=== PATIENT | male | born 1970 | race Caucasian/White ===

== ENCOUNTER → 2024-10-27 | Emergency (ER) | payer OTHER ==
[~2024-10-27] VITALS: Ht 180.3 cm; Wt 83.9 kg
[~2024-10-27] MED LIST: MAG/ALUM/SIMETH 30 ML UDCUP PO ONE
[2024-10-27 12:59] LABS: BASOPHILS # (AUTO) 0.02 K/uL (0.00-0.20); BASOPHILS % (AUTO) 0.2 % (0.0-5.0); EOSINOPHILS # (AUTO) 0.07 K/uL (0.00-0.70); EOSINOPHILS % (AUTO) 0.6 % (0.0-8.0); HEMATOCRIT 44.9 % (42-54); IMMATURE GRANULOCYTE ABSOLUTE 0.05 K/uL (0-1); LYMPHOCYTES # (AUTO) 0.9 K/uL (1.0-4.8); MEAN CORPUSCULAR HEMOGLOBIN 32.2 pg (27.0-33.0); MEAN CORPUSCULAR HGB CONC 34.3 g/dL (32.0-36.0); MEAN CORPUSCULAR VOLUME 93.9 fL (79-99); MONOCYTES # (AUTO) 0.8 K/uL (0.1-1.0); MONOCYTES % (AUTO) 6.7 % (3.0-13.0); NEUTROPHILS # (AUTO) 9.5 K/uL (1.8-7.7); NEUTROPHILS % (AUTO) 84.1 % (40.0-77.0); PLATELET COUNT (AUTO) 214 K/uL (130-400); RED BLOOD CELL COUNT(AUTO) 4.78 MIL/uL (4.50-6.20); RED CELL DISTRIBUTION WIDTH 12.7 % (11.0-15.5); WHITE BLOOD COUNT (AUTO) 11.3 K/uL (4.8-10.8)
[2024-10-27 13:06] LABS: CREATININE 0.9 mg/dL (0.5-1.3); POTASSIUM 4.3 mmol/L (3.5-5.1)
--- NOTE | 2024-10-27 13:31 | EKG ---
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
--- NOTE | 2024-10-27 14:14 | ERN ---
ED Note History of Present Illness Stated Complaint: CHEST PAIN Chief Complaint: Chest Pain Time Seen by MD: 12:40 Dictation: 54-year-old male presents to the ED for evaluation of chest pain onset 6:00 a.m. this morning. Patient reports pain radiates to his back in his also complaining of right flank pain, but denies any shortness a breath, vomiting or any other associated symptoms at this time. Patient also mentioned he had been [place] surfing for the last couple of days and believes he might have a muscle strain. Allergies: Coded Allergies: amoxicillin (Unverified Allergy, Unknown, RASH, 10/27/24) Past Medical History Past Medical History: High Cholesterol Surgical History: Appendectomy Review of System Dictation Constitutional: Negative for fever,chills, and weight loss Eyes: Negative for injury, pain,redness, and discharge ENT: Negative for injury,pain or swelling Cardiovascular: Positive for chest pain negative for palpitations, and edema Respiratory: Negative for shortness of breath, cough, and wheezing, Abdomen/GI: Positive for flank pain Negative for abdominal pain, nausea, vomiting, diarrhea, and constipation Back: Positive for back pain : Negative for injury, bleeding and discharge MS/Extremity: Negative for injury and deformity Skin: Negative for rash, and discoloration Neuro: Negative for headache, weakness, numbness, tingling, and seizure Psych: Negative for suicide ideation, homicidal ideation, and hallucinations Initial Vital Sign VS Vital Signs Date Time Temp Pulse Resp B/P (MAP) Pulse Ox O2 Delivery O2 Flow Rate FiO2 10/27/24 12:24 98.2 68 20 130/77 99 Room Air 10/27/24 14:47 0 21 Physical Exam Dictation General: awake, alert, NAD Head/Face: Normocephalic, atraumatic Eyes: PERRL, EOMI, vision at baseline ENT: oral cavity clear, TMs clear, no signs of infection Neck: Trachea midline, supple, no nuchal rigidity Cardiovascular: RRR, normal S1/S2, No MRGs, no JVD Respiratory: CTAB, no respiratory distress, No rales or wheezes Abdomen: Soft, non-tender, non-distended, normal bowel sounds, no guarding or rebound. Skin: Warm, dry, normal turgor, no rash MS/Extremity: Pulses equal, no cyanosis, neurovascular intact, FROM Neuro: COAx4, GCS 15, strength 5/5, CN 2-12 intact, normal cerebellar exam, normal gait, Psych: Normal behavior, mood, and affect normal Results (Laboratory/Radiology) Laboratory/Radiology Laboratory Tests Test 10/27/24 12:49 10/27/24 14:14 White Blood Count 11.3 K/uL (4.8-10.8) H Red Blood Count 4.78 MIL/uL (4.50-6.20) Hemoglobin 15.4 g/dL (14.0-18.0) Hematocrit 44.9 % (42-54) Mean Corpuscular Volume 93.9 fL (79-99) Mean Corpuscular Hemoglobin 32.2 pg (27.0-33.0) Mean Corpuscular Hemoglobin Concent 34.3 g/dL (32.0-36.0) Red Cell Distribution Width 12.7 % (11.0-15.5) Platelet Count 214 K/uL (130-400) Mean Platelet Volume 10.6 fL (7.5-10.5) H Immature Granulocyte % (Auto) 0.4 % (0-1) Neutrophils (%) (Auto) 84.1 % (40.0-77.0) H Lymphocytes (%) (Auto) 8.0 % (21.0-51.0) L Monocytes (%) (Auto) 6.7 % (3.0-13.0) Eosinophils (%) (Auto) 0.6 % (0.0-8.0) Basophils (%) (Auto) 0.2 % (0.0-5.0) Neutrophils # (Auto) 9.5 K/uL (1.8-7.7) H Lymphocytes # (Auto) 0.9 K/uL (1.0-4.8) L Monocytes # (Auto) 0.8 K/uL (0.1-1.0) Eosinophils # (Auto) 0.07 K/uL (0.00-0.70) Basophils # (Auto) 0.02 K/uL (0.00-0.20) Absolute Immature Granulocyte (auto 0.05 K/uL (0-1) Nucleated Red Blood Cells 0.0 % (0.0-0.19) White Cell Morphology Comment See comments Sodium Level 140 mmol/L (136-145) Potassium Level 4.3 mmol/L (3.5-5.1) Chloride Level 104 mmol/L (101-111) Carbon Dioxide Level 33 mmol/L (21-32) H Blood Urea Nitrogen 13 mg/dL (7-18) Creatinine 0.9 mg/dL (0.5-1.3) Glomerular Filtration Rate Calc 102 mL/min (>90) Random Glucose 122 mg/dL (70-105) H Total Calcium 9.8 mg/dL (8.5-10.1) Troponin I High Sensitivity 5 ng/L (4-75) 5 ng/L (4-75) Total Bilirubin 0.7 mg/dL (0.2-1.0) Direct Bilirubin 0.1 mg/dL (0.0-0.3) Aspartate Amino Transf (AST/SGOT) 17 U/L (10-37) Alanine Aminotransferase (ALT/SGPT) 35 U/L (12-78) Alkaline Phosphatase 65 U/L (50-136) Total Protein 6.7 g/dL (6.0-8.3) Albumin 4.0 g/dL (3.5-5.0) Labs Reviewed?: Yes EKG Comment: EKG 10/27/2024 time 12:18 p.m. ventricular rate 64, ND 154, QRS D 91, QT 404. Sinus rhythm, ST elevation, probable normal early repol pattern. No STEMI ED Course ED Course Orders Procedure Category Date Status Time Vital Signs Per CPOE 10/27/24 Transmitted Routine 12:28 Chest 1vw RAD 10/27/24 Resulted 12:28 12 Lead Ekg Tracing- EKG 10/27/24 Complete Technical 12:28 Oxygen By Nc/Pulse Ox CPOE 10/27/24 Transmitted 12:28 Maintain Iv CPOE 10/27/24 Transmitted 12:28 Iv Insertion CPOE 10/27/24 Transmitted 12:28 Cardiac Monitoring CPOE 10/27/24 Transmitted 12:28 Pulse Oximetry With CPOE 10/27/24 Transmitted Vs And Prn 12:28 Cbc With Differential LAB 10/27/24 Complete 12:28 Activity: Br W/Brp CPOE 10/27/24 Transmitted With Assist 12:28 Troponin I High LAB 10/27/24 Complete Sensitivity 12:28 Urinalysis Profile LAB 10/27/24 Logged 12:28 Basic Metabolic Panel LAB 10/27/24 Complete 12:28 Us Abdominal Ruq\Ltd US 10/27/24 Resulted 14:05 Hepatic Function Panel LAB 10/27/24 Complete 14:05 Troponin I High LAB 10/27/24 Complete Sensitivity 14:05 Morphine 4mg Syg PHA 10/27/24 Complete (Morphine 4mg Syg) 14:30 Ondansetron 4mg Inj PHA 10/27/24 Complete (Zofran 4mg Inj) 14:30 Current Medications Medications (Trade) Dose Ordered Sig/Jessy Route PRN Reason Start Time Stop Time Status Last Admin Dose Admin Morphine Sulfate (morPHINE 4MG SYG) 4 mg ONCE ONCE IVP 10/27/24 14:30 10/27/24 14:31 DC 10/27/24 14:47 Ondansetron HCl (zoFRAN 4MG INJ) 4 mg ONCE ONCE IVP 10/27/24 14:30 10/27/24 14:31 DC 10/27/24 14:47 Vital Signs Date Time Temp Pulse Resp B/P (MAP) Pulse Ox O2 Delivery O2 Flow Rate FiO2 10/27/24 16:19 98.1 72 18 107/69 98 Room Air* 0 21 10/27/24 15:20 97.9 60 18 107/70 98 Room Air* 0 21 10/27/24 14:47 98.1 64 16 107/73 98 Room Air* 0 10/27/24 12:24 98.2 68 20 130/77 99 Room Air HEART Score Response (Comments) Value History: Low suspicion (0) 0 EKG: Normal 0 Age: 45-65yrs (+1) 1 Risk Factors: No known risk factors (0) 0 Initial Troponin: Normal limit (0) 0 HEART Score Risk: Low Risk for MACE (1-3) Total 1 Medical Decision Making MDM MDM: Differential diagnosis: Chest pain, muscle strain Rationale: Tests considered and ordered secondary to shared decision making include: Previous outside records reviewed: Old ER visits. Risk of complication and/or morbidity or mortality of patient management: None Medications-Per medication reconciliation Need for hospitalization: Patient does not meet criteria for hospitalization. Need for emergency major/minor surgery: No There are no social concerns with this patient. Prescription drug management Prescriptions will include symptomatic care Patient's prior external medical records from other ER visits were reviewed by me as indicated. Prior testing and results from previous visits were reviewed. Prior tests were taken into account with medical decision making and resource utilization, independent historian/historians were used to obtain complete medical history. I independently interpreted the test that were performed, results were reviewed by me and considered findings on radiology if ordered. DX & DISP Disposition: Discharge Departure Impression: Primary Impression: Chest pain Condition: Stable Referrals: SELF,REFERRAL (PCP) MATTHEW JC MD Oct 27, 2024 14:14
--- NOTE | 2024-10-27 14:28 | HMCIMG ---
PORTABLE CHEST RADIOGRAPH INDICATION: CHEST PAIN COMPARISON: None FINDINGS: Heart size is normal. The pulmonary vascularity and chiara appear normal. No abnormal pulmonary parenchymal opacity or consolidation identified. No significant pleural effusion noted. No pneumothorax detected. IMPRESSION: No radiographic evidence for any acute cardiopulmonary process.
[2024-10-27 14:38] LABS: BILIRUBIN,DIRECT 0.1 mg/dL (0.0-0.3); BILIRUBIN,TOTAL 0.7 mg/dL (0.2-1.0); TOTAL PROTEIN, SERUM 6.7 g/dL (6.0-8.3)
[2024-10-27] MEDS: morPHINE 4 MG SYG IVP ONE (14:47)
[2024-10-27] MEDS: ondanSETRON 4MG INJ IVP ONE (14:47)
--- NOTE | 2024-10-27 15:24 | HMCIMG ---
ULTRASOUND ABDOMEN LIMITED INDICATION: Right upper abdominal pain COMPARISON: None FINDINGS: The liver is normal in size and echogenicity; no focal lesion demonstrated. Echo portal The common bile duct diameter measures 3.0 mm. No evidence for calculi, sludge or pericholecystic fluid. No sonographic Lane's sign elicited by the ultrasound transit coach operator. Wall thickness measures 1.8 mm. Pancreas is obscured by overlying bowel gas. The right kidney measures 11.0 x 4.0 x 6.0 cm,and is normal in echogenicity, without evidence for hydronephrosis.No shadowing stones demonstrated. No free fluid demonstrated. IMPRESSION: Limitations as reported. No acute right upper abdominal abnormality noted.
[2024-10-27 16:19] VITALS: BP 107/69; PULSE 72; RESP 18; TEMP 98.1; O2SAT 98
[2024-10-27] MEDS: MAG/ALUM/SIMETH 30 ML UDCUP PO ONE (16:47)
[2024-10-27] MEDS: LIDOCAINE HCL 2% VISCOUS 15 ML UDCUP PO ONE (16:48)
--- NOTE | 2024-10-27 16:59 | NUR ---
dr. burns offered pt further work up and pt refusing, initially refusing gi cocktail but decided to drink gi cocktail.
== END ==
LOC: EDH 12:23 → EDSEX 12:23
DX: R07.89 Other chest pain (principal); E78.00 Pure hypercholesterolemia, unspecified; Z88.0 Allergy status to penicillin; Z90.49 Acquired absence of other specified parts of digestive tract
CPT/HCPCS: 99285; 96374; 76705; 71045; 96375; 80076; 84484 ×2; 80048; 85025; 36415; 93005; J2405; J2270